=== PATIENT | female | born 1995 | race American Indian/Alaskan Native ===

== ENCOUNTER 2019-01-11 00:11 | Emergency (ER) | payer OTHER ==
[2019-01-11 01:23] VITALS: BP 122/69
--- NOTE | 2019-01-11 02:50 | XRay Report ---
CERVICAL SPINE 3 VIEWS INDICATION / CLINICAL INFORMATION: neck pain. COMPARISON: None available. FINDINGS: No significant skeletal abnormality. Alignment is normal. Signer Name: Monty Arguello MD FACDeborah Signed: 01/11/2019 2:45 AM Workstation Name: [id number]
[2019-01-11] MEDS ORDERED: PERCOCET 5/325 PO STA (02:58)
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
== END 2019-01-11 04:00 | disposition home or self-care (01) ==
LOC: ED 00:11
DX: S16.1XXA Strain of muscle, fascia and tendon at neck level, initial encounter (principal); R51 Headache; V49.9XXA Car occupant (driver) (passenger) injured in unspecified traffic accident, initial encounter; Y93.89 Activity, other specified; Y92.488 Other paved roadways as the place of occurrence of the external cause; Y99.8 Other external cause status
CPT/HCPCS: 72040